=== PATIENT | male | born 1950 | race Caucasian/White ===

== ENCOUNTER 2016-11-17 17:21 | Outpatient (CLI) | END 2016-11-17 17:22 | disposition home or self-care (01) | LOC: LAB 17:21 | PROVIDERS: ATTEND General Practice | DX: L02.91 Cutaneous abscess, unspecified (principal) | CPT/HCPCS: 87070 ==

== ENCOUNTER 2016-11-19 12:03 | Outpatient (CLI) ==
--- NOTE | 2016-11-19 12:31 | DI ---
EXAM: Two views of the chest. History: Short of breath and chronic obstructive pulmonary disease Findings: Heart size is within normal limits. Sternotomy wires. Artificial heart valve. No defin ite acute infiltrates. Hyperinflation. Small round nodular opacity within the right upper hemithor ax. No acute osseous abnormalities. Impression: 1. No definite acute infiltrates. 2. Small round nodular opacity projecting over the right upper hemithorax is nonspecific and could represent a lung nodule or artifact. Please correlate with old chest radiographs if they are availa ble. Otherwise, recommend chest CT. 3. Possible chronic obstructive pulmonary disease.
== END 2016-11-19 12:04 | disposition home or self-care (01) ==
LOC: RAD 12:03
PROVIDERS: ATTEND Internal Medicine
DX: R06.02 Shortness of breath (principal); J44.9 Chronic obstructive pulmonary disease, unspecified

== ENCOUNTER 2016-11-27 08:51 | Outpatient (CLI) | payer OTHER | END 2016-11-27 08:52 | disposition home or self-care (01) | LOC: CAR 08:51 | PROVIDERS: ATTEND Internal Medicine | DX: R06.02 Shortness of breath (principal) | CPT/HCPCS: 94761 ==